=== PATIENT | female | born 1995 | race Hispanic/Latino ===

== ENCOUNTER 2019-06-14 19:51 | Emergency (ER) | payer SELFPAY ==
[~2019-06-14] VITALS: Ht 157.5 cm; Wt 87.1 kg
[2019-06-14] MEDS ORDERED: ALBUTEROL SULF 0.083% NEB SOLN 3 ML NEB ONE (20:23)
[2019-06-14] MEDS ORDERED: ALBUTEROL SULF 0.083% NEB SOLN 3 ML NEB NEB STA (20:26)
[2019-06-14] MEDS ORDERED: IOPAMIDOL 370 MG/ML 200 ML INFUS..BTL INJ ONE (20:58)
--- NOTE | 2019-06-14 21:42 | NUR ---
PT NOW AWAITING CT RESULTS. PT REFUSED BLANKET AT THIS TIME
[2019-06-14] MEDS ORDERED: POTASSIUM CHLORIDE 20 MEQ TAB CR PO STA (22:13)
--- NOTE | 2019-06-14 22:16 | Diagnostic Imaging Report ---
EXAM: CT Chest WITH contrast- Pulmonary Embolism Protocol INDICATION: Shortness of breath. COMPARISON: None TECHNIQUE: Chest was scanned utilizing a multidetector helical scanner from the lung apex through the level of the diaphragm after administration of IV contrast. Thin section reconstructions were obtained with special concentration on the pulmonary arteries. Coronal and sagittal reformations were obtained. Pulmonary embolism protocol was performed. IV CONTRAST: 100 cc of Isovue 370 RADIATION DOSE: Total DLP: 454.6 mGy*cm Dose modulation, iterative reconstruction, and/or weight based adjustment of the mA/kV was utilized to reduce the radiation dose to as low as reasonably achievable. COMPLICATIONS: None FINDINGS: LINES/ TUBES: None. PULMONARY ARTERIES: No filling defect is identified within the pulmonary arteries to the segmental level. The subsegmental pulmonary arteries are not well opacified. Main pulmonary artery measures 2.6 cm in diameter. LUNGS AND AIRWAYS: The central airways are patent. No evidence of pneumonia or pulmonary edema. Minimal dependent atelectasis. There is a 6 mm solid nodule in the left upper lobe on series 4, image 42. There is a 4 mm solid subpleural nodule in the left upper lobe on image 50. There is a 4 mm solid nodule in the right middle lobe on image 52. Scattered additional bilateral 2 mm pulmonary nodules. PLEURA: The pleural spaces are clear. HEART AND MEDIASTINUM: The thyroid gland is normal. No mediastinal, hilar or axillary lymphadenopathy. The heart is normal in size.. There is no pericardial effusion. . UPPER ABDOMEN: Limited contrast enhanced views of the upper abdomen are unremarkable. BONES: The visualized bony thorax is within normal limits. SOFT TISSUES: Unremarkable. IMPRESSION: No evidence of pulmonary embolism to level of the segmental pulmonary arteries. Bilateral pulmonary nodules, measuring up to 6 mm in the left upper lobe. These may be infectious or inflammatory. Recommend follow-up chest CT in 6-12 months. Signed by: Dr. Gayla Thompson MD on 06/14/2019 10:12 PM
--- NOTE | 2019-06-14 22:24 | NUR ---
CT RESULTS IN. INFORMED MD
[2019-06-14] MEDS ORDERED: POTASSIUM CHLORIDE 20 MEQ TAB CR PO ONE ×2 (22:26→22:27)
[2019-06-14] MEDS ORDERED: CIPRO500 MG PO (22:38)
[2019-06-14] MEDS ORDERED: PROVENTIL HFA6.7 GM INH (22:38)
[2019-06-14 22:47] VITALS: BP 124/78
== END 2019-06-14 22:47 | disposition home or self-care (01) ==
LOC: FSED 19:51
DX: R06.09 Other forms of dyspnea (principal); J20.9 Acute bronchitis, unspecified
CPT/HCPCS: 71275; 81003; 81025; 99284; Q9967